=== PATIENT | male | born 1980 | race Caucasian/White ===

== ENCOUNTER 2022-07-12 16:19 | Emergency (ER) | payer OTHER, MEDICAID, SELFPAY ==
[2022-07-12 16:53] VITALS: BP 142/84; PULSE 79; RESP 16; TEMP 36.7; O2SAT 99; BMI 23.0
[2022-07-12] MEDS: LIDOCAINE PATCH 1 EACH ADH..PATCH TOP (18:54)
[2022-07-12] MEDS: ACETAMINOPHEN 325 MG TABLET 975 MG PO (18:54)
[2022-07-12] MEDS: predniSONE 20 MG TABLET 40 MG PO (18:55)
[2022-07-12] MEDS: KETOROLAC 30 MG/ML VIAL IM (18:55)
--- NOTE | 2022-07-12 19:17 | ED.BACK ---
HPI - Back Pain/Injury <ONEL Sorto - Last Filed: 07/12/22 19:30> General Chief Complaint: Back Pain/Injury Stated Complaint: Back inj, Illness Time Seen by Provider: 07/12/22 18:33 Source: patient History of Present Illness HPI Narrative: This is a 41-year-old male presents to the emergency department for exacerbation of his low back pain which he states happened 6 days ago. He states it was starting to get better but worsened when he moved today. 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 He denies any urinary complaints, denies any fever, congestion, abdominal pain, difficulty breathing or weakness. Related Data Previous Rx's Medication Instructions Recorded lidocaine 5 % topical patch 1 patch topical DAILY #15 ea 07/12/22 (Lidoderm) methocarbamol 500 mg tablet 500 mg PO Q8H PRN muscle spasm #20 07/12/22 tabs prednisone 20 mg tablet 40 mg PO DAILY 5 days #10 tabs 07/12/22 Review of Systems <ONEL Sorto - Last Filed: 07/12/22 19:30> Review of Systems Narrative: Review of systems is negative for acute abnormalities unless otherwise noted in HPI Patient History <ONEL Sorto - Last Filed: 07/12/22 19:30> Social History Smoking Status: Never smoker Smoking Status: Never smoker alcohol intake frequency: a few times a month Substance Use Type: does not use Exam <ONEL Sorto - Last Filed: 07/12/22 19:30> Narrative Exam Narrative: Reviewed vitals signs and nursing notes. General: cooperative, comfortable, in no acute distress, well groomed, standing room HEENT: symmetrical facial expressions, moist mucous membranes GI: abdomen soft, nontender to palpation, nondistended, without masses, rebound tenderness or exquisite tenderness with exam. MSK: moves all extremities, neurovascularly intact, no weakness, normal tone, pain is exacerbated by leg lift and by forward flexion at the waist, pain is central low back over L1/L2 area with radiation over the right anterior hip, no abdominal tenderness or CVA tenderness, dorsiflexion and plantar extension are intact without weakness, no sensation deficit bilaterally Skin: brisk capillary refill, without pallor or erythema Neuro: normal speech and cognition, A&O x3, ambulatory, clear speech Psych: mental status is grossly normal, congruent mood, normal affect, pleasant and cooperative Initial Vital Signs Initial Vital Signs: Vital Signs Temperature 98.1 F 07/12/22 16:53 Pulse Rate 79 07/12/22 16:53 Respiratory Rate 16 07/12/22 16:53 Blood Pressure 142/84 H 07/12/22 16:53 Pulse Oximetry 99 07/12/22 16:53 Oxygen Delivery Method 07/12/22 16:53 <Sinai Marlow MD - Last Filed: 07/13/22 08:21> Initial Vital Signs Initial Vital Signs: Vital Signs Temperature 98.1 F 07/12/22 16:53 Pulse Rate 79 07/12/22 16:53 Respiratory Rate 16 07/12/22 16:53 Blood Pressure 142/84 H 07/12/22 16:53 Pulse Oximetry 99 07/12/22 16:53 Oxygen Delivery Method 07/12/22 16:53 Course <ONEL Sorto - Last Filed: 07/12/22 19:30> Orders Ordered: Discontinued Medications Acetaminophen (Acetaminophen 325 Mg Tablet) 975 mg PO NOW ONE Stop: 07/12/22 18:44 Last Admin: 07/12/22 18:54 Dose: 975 mg Documented By: SHOSHANA Ketorolac Tromethamine (Ketorolac 30 Mg/Ml Vial) 30 mg IM NOW ONE Stop: 07/12/22 18:44 Last Admin: 07/12/22 18:55 Dose: 30 mg Documented By: SHOSHANA Lidocaine (Lidocaine Patch 1 Each Adh..Patch) 1 each TOP NOW ONE Stop: 07/12/22 18:44 Last Admin: 07/12/22 18:54 Dose: 1 each Documented By: SHOSHANA Prednisone (Prednisone 20 Mg Tablet) 40 mg PO NOW ONE Stop: 07/12/22 18:44 Last Admin: 07/12/22 18:55 Dose: 40 mg Documented By: SHOSHANA Vital Signs Vital signs: Vital Signs - 8 hr 07/12/22 16:53 Temperature 98.1 F Pulse Rate 79 Respiratory Rate 16 Blood Pressure 142/84 H Pulse Oximetry 99 Oxygen Delivery Method Room Air <Sinai Marlow MD - Last Filed: 07/13/22 08:21> Orders Ordered: Discontinued Medications Acetaminophen (Acetaminophen 325 Mg Tablet) 975 mg PO NOW ONE Stop: 07/12/22 18:44 Last Admin: 07/12/22 18:54 Dose: 975 mg Documented By: SHOSHANA Ketorolac Tromethamine (Ketorolac 30 Mg/Ml Vial) 30 mg IM NOW ONE Stop: 07/12/22 18:44 Last Admin: 07/12/22 18:55 Dose: 30 mg Documented By: SHOSHANA Lidocaine (Lidocaine Patch 1 Each Adh..Patch) 1 each TOP NOW ONE Stop: 07/12/22 18:44 Last Admin: 07/12/22 18:54 Dose: 1 each Documented By: SHOSHANA Prednisone (Prednisone 20 Mg Tablet) 40 mg PO NOW ONE Stop: 07/12/22 18:44 Last Admin: 07/12/22 18:55 Dose: 40 mg Documented By: SHOSHANA Vital Signs Vital signs: Vital Signs - 8 hr 07/12/22 16:53 Temperature 98.1 F Pulse Rate 79 Respiratory Rate 16 Blood Pressure 142/84 H Pulse Oximetry 99 Oxygen Delivery Method Room Air MDM - Back Pain/Injury <ONEL Sorto - Last Filed: 07/12/22 19:30> MDM Narrative Medical decision making narrative: Patient presents with 6 days of low back pain, without trauma, and is afebrile. Patient had a twisting injury when he lifted a generator and went to set it down 6 days ago and felt sharp pain at that time. Has had improvement over the week but a movement today flared up his pain again. Has radiation over the anterior of his right hip into his inguinal region when it does radiate. He states it is exacerbated by forward flexion, leg lift, and heavy lifting. Given history and exam, suspect likely musculoskeletal etiology, they are nontoxic appearing with no overt risk factors for epidural hematoma or abscess. No overt evidence of critical cord compression and has a nonfocal near exam. Neurovascularly intact distally, no evidence of infection, peritoneal signs, hypertensive crisis, or abdominal pain with low suspicion for AAA. No weakness, incontinence, neurovascular or sensation changes, no concerning findings for caudal equina syndrome, lumbar fracture, without paresthesia, neuropathic pain, meningeal signs and fever. This could be a herniated disk, paraspinal or other muscle strain, ligamental injury, arthritic, nephrolithiasis/pyelonephritis, epidural abscess, chronic pain, and other diagnosis? considered less likely. Recommended that patient let pain be his guide and to avoid strenuous physical exertion to avoid further injury. He understands his strict return precautions, was treated today with muscle relaxers, prednisone, Toradol, and lidocaine patch. Patient is appropriate and amenable to discharge home. Vital signs are stable on repeat examination is unremarkable. Patient has been informed of results. Patient has been given strict return to ER precautions for any new or worsening symptoms. Patient understands to follow up closely with outpatient providers as instructed. Patient understands plan and agrees to discharge home. All questions and concerns answered at this time. Discharge Plan Departure Patient Disposition: Home Clinical Impression: Acute lumbar radiculopathy Instructions: Low Back Pain, Lumbar Radiculopathy Activity Restrictions/Additional Instructions: *You have been diagnosed with lumbar radiculopathy from an irritated nerve root. Please take 800 mg of ibuprofen every 8 hours with food and water with Tylenol 1000 mg. Please use lidocaine patches if they are helpful, muscle relaxers there helpful at night for sleeping, please take the steroid each day in the morning with food and water, this will help reduce inflammation. I hope that you start feeling better soon, please get yourself a back brace so that you are lifting safely at work with support, follow-up with your regular doctor, let pain be your guide, you must listen to it at some point. *What to do: *Please continue to take your regular medications as directed. [ x] New medication prescriptions sent to your pharmacy: [ Friday] [ ] New medication written as a paper prescription [ ] No new medications given *Please follow up with your primary care provider in 2-3 days, call for an appointment. Let them know you were seen in the Emergency Department and that we asked that you be seen for follow-up. We will electronically transmit a record of today's note if your PCP is in our system *If you do not have a primary care provider please contact [phone] to establish care with one of the [facility] primary care providers. *Return to Emergency Department if you should have any new, worsening, or concerning symptoms, such as [fever greater than 101F, chills, worsening pain, persistent vomiting or other bothersome symptoms]. Prescriptions: New prednisone 20 mg tablet 40 mg PO DAILY 5 Days Qty: 10 0RF methocarbamol 500 mg tablet 500 mg PO Q8H PRN (Reason: muscle spasm) Qty: 20 0RF lidocaine [Lidoderm] 5 % adhesive patch,medicated 1 patch topical DAILY Qty: 15 0RF Rx Instructions: leave on most painful area for up to 12 hrs Visit Report Forms: Patient Portal/API <Sinai Marlow MD - Last Filed: 07/13/22 08:21> Cosign ED Attending Cosignature Attestation: I was immediately available in the department for consultation throughout this patient's visit. I agree with documentation as above. Sinai Marlow MD
== END 2022-07-12 19:09 | disposition home or self-care (01) ==
PROVIDERS: Emergency Provider Nurse Practitioner Critical Care Medicine
DX: M54.16 Radiculopathy, lumbar region (principal); X50.0XXA Overexertion from strenuous movement or load, initial encounter
CPT/HCPCS: 96372; 99283; J1885